=== PATIENT | male | born 1965 | race Caucasian/White ===

== ENCOUNTER 2017-11-12 23:43 | Emergency (ER) | payer BC, SELFPAY ==
[2017-11-12 23:44] VITALS: BP 152/88; PULSE 75; RESP 18; TEMP 36.4; O2SAT 99; BMI 27.7
--- NOTE | 2017-11-13 00:01 | EKG12_ITS ---
Test Reason : CP Blood Pressure : / mmHG Vent. Rate : 069 BPM Atrial Rate : 069 BPM P-R Int : 218 ms QRS Dur : 100 ms QT Int : 404 ms P-R-T Axes : -11 039 039 degrees QTc Int : 432 ms Sinus rhythm with 1st degree A-V block Otherwise normal ECG Confirmed by NETTA NORTON, NELLA ([id number]), film editor supervisor MARIELLE GIPSON ([id number]) on 11/23/2017 6:48:18 PM Referred By: JOJO Confirmed By:NELLA CHADWICK MD
[2017-11-13 00:15] LABS: Absolute Lymphocyte Count 2.89 X10^3/ul (0.83-4.51); Absolute Neutrophil Count 4.1 X10^3/uL (2.0-7.7); Basophil# 0.05 X10^3/uL; Basophil% 0.6 % (0-1); Eosinophil# 0.33 X10^3/uL; Hematocrit 43.1 % (40-54); Hemoglobin 14.9 g/dl (13.0-16.5); Lymphocyte # 2.89 X10^3/ul (4.0); Lymphocyte % 35.1 % (19-41); Mean Corp Hgb Conc 34.6 g/gl (32-36); Mean Corpuscular Hgb 31.3 pg (27.0-32.0); Mean Corpuscular Volume 90.5 fL (80-94); Mean Platelet Vol. 10.5 fl (6.2-12.0); Monocyte# 0.84 X10^3/uL; Monocyte% 10.2 % (0-10); Neutrophil % 49.9 % (47-70); Platelet Count 127 K/mm3 (150-450); RBC Distribution Width CV 12.9 % (11.6-14.6); RBC Distribution Width SD 42.4 fl (35.1-43.9); Red Blood Count 4.76 M/mm3 (4.6-6.2); White Blood Count 8.2 K/mm3 (4.4-11.0)
[2017-11-13] MEDS: Aspirin 81 MG TAB.CHEW 324 MG PO (00:22)
--- NOTE | 2017-11-13 00:25 | RAD_ITS ---
STUDY: X-RAY CHEST REASON FOR EXAM: Male, 52 years old. Chest pain TECHNIQUE: 2 views COMPARISON: None. FINDINGS: The lungs are clear and expanded. There is no demonstrated pleural abnormality. Normal size heart. Normal mediastinum and luis carlos. Normal visualized pulmonary arteries. Normal visualized aortic arch and descending thoracic aorta. Normal visualized thoracic spine. Normal visualized ribs, clavicles, and shoulders. There is no demonstrated abnormality of the visualized soft tissue structures of the upper abdomen. RAD/Chest PA and Lateral IMPRESSION: Normal x-ray examination of the chest. No acute findings in the lungs Electronically Signed: Juan Manuel Wong, at 1:10 EDT Tel , Service support ,
[2017-11-13 00:26] LABS: D-Dimer Quantitative (DVT/PE) 0.42 FEU/ug/m (0.27-0.49); POSITIVE COUNT NO; POSITIVE DIFFERENTIAL NO; POSITIVE MORPHOLOGY NO
[2017-11-13 00:28] LABS: Anion Gap 8 (5-15); BUN 15 mg/dL (7-18); BUN/Creat Ratio 13.9 RATIO (10-20); Calcium,Total 8.1 mg/dL (8.5-10.1); Chloride 97 mmol/L (98-107); Creatinine, Serum 1.08 mg/dL (0.70-1.30); EST Glomerular Filtration Rate 77 mL/min (>60); Est Glom Filt Rate - Afr Amer 93 mL/min (>60); Estimated Creatinine Clearance 99.35 ml/min; Glucose 106 mg/dL (74-106); Potassium 3.8 mmol/L (3.5-5.1); Sodium Level 130 mmol/L (136-145)
[2017-11-13 00:54] VITALS: BP 135/81; PULSE 66; RESP 13; O2SAT 94
[2017-11-13 01:17] VITALS: BP 133/84; PULSE 67; RESP 12; O2SAT 96
--- NOTE | 2017-11-13 02:10 | EKG12_ITS ---
Test Reason : REPEAT Blood Pressure : / mmHG Vent. Rate : 064 BPM Atrial Rate : 064 BPM P-R Int : 252 ms QRS Dur : 100 ms QT Int : 418 ms P-R-T Axes : 029 -02 036 degrees QTc Int : 431 ms Sinus rhythm with 1st degree A-V block Otherwise normal ECG Confirmed by NETTA NORTON, NELLA ([id number]), scientific publications editor MARIELLE GIPSON ([id number]) on 11/23/2017 6:48:35 PM Referred By: JOJO Confirmed By:NELLA CHADWICK MD
[2017-11-13 02:48] VITALS: BP 127/83; PULSE 64; RESP 14; O2SAT 98
--- NOTE | 2017-11-13 03:18 | ED.DCSUM_ITS ---
- ER Visit Summary Date of Service: 11/13/17 Chief Complaint: [] Chest pain History of Present Illness: The patient is a 52 M [] complaining of chest pain in a circular bandlike distribution all the way around the front and the back starting midsternally. Patient reports similar history of symptoms with bad acid reflux. Reports taking his acid reflux medication half an hour after the onset of symptoms without relief. He reports a history of a negative stress test 8 years ago. Denies radiation into the neck jaw or arm. Denies diaphoresis. Denies shortness of breath. Denies pleuritic chest pain. Denies PE risk factors. Reports alcohol and tobacco use. Past medical history of hypertension, hypercholesteremia, anxiety, restless leg syndrome. Physical Examination: [] Afebrile, vital signs stable. 52-year-old male no acute distress. Cardiovascular exam is regular rate and rhythm. Lungs are clear to auscultation. Abdomen is soft and nontender. No lower extremity edema. Test Results: [] Chest x-ray 2 views negative. EKG #1 normal sinus rhythm, rate of 69 with first-degree heart block. No ischemic changes or ectopy. Repeat EKG 3 hours later: Normal sinus rhythm rate of 64 first-degree heart block again no ischemic changes or ectopy. Labs: CBC, BMP within normal limits. Troponin #1 negative. Troponin #2 negative. Emergency Department Course and Treatment: [] JESSICA risk score 0 out of 7. Patient underwent a delta troponin evaluation. This ultimately returned negative. Patient did receive a GI cocktail upon arrival with aspirin. Patient reported improvement of symptoms. He was observed for over 3 hours. He represents clinically low risk for serious cardiac event and will be discharged with instructions to follow-up with an outpatient stress test. His was at the bedside during his entire evaluation. They voiced understanding of discharge instructions and the need for close follow-up. Treatment Plan: [] Follow-up with PCP for outpatient treatment and evaluation. Disposition: [] Discharge, stable. Impression: [] Chest pain This note was generated with [employer] dictation software. It may contain incorrect words, spelling, and punctuation that were not noted in review of the chart prior to signing ED Disposition - Plan for ED Patient: Chief Complaint: Chest Pain Referrals: Vanesa Calderon MD [Primary Care Provider] -
--- NOTE | 2017-11-13 03:18 | ED.DEP ---
ED Disposition - Plan for ED Patient: Disposition: Home or Assisted Living Chief Complaint: Chest Pain Instructions: ED Chest Pain Atypical Unkn Cause Referrals: Vanesa Calderon MD [Primary Care Provider] -
[2017-11-13 03:27] VITALS: BP 131/90; PULSE 53; RESP 18; O2SAT 98
== END 2017-11-13 03:28 | disposition home or self-care (01) ==
PROVIDERS: Emergency Provider Emergency Medicine; Family Provider Internal Medicine; PCP Internal Medicine
DX: R07.9 Chest pain, unspecified (principal); K21.9 Gastro-esophageal reflux disease without esophagitis; I10 Essential (primary) hypertension; E78.00 Pure hypercholesterolemia, unspecified; F41.9 Anxiety disorder, unspecified; G25.81 Restless legs syndrome; Z72.0 Tobacco use; Z79.899 Other long term (current) drug therapy
CPT/HCPCS: 71046; 80048; 84484; 85025; 85379; 93005; 99284; A4216

== ENCOUNTER 2019-11-22 13:05 | Emergency (ER) | payer BC, SELFPAY ==
[2019-11-22 13:06] VITALS: BP 121/79; PULSE 79; RESP 16; TEMP 36.4; O2SAT 96; BMI 27.3
--- NOTE | 2019-11-22 14:36 | ED.DCSUM_ITS ---
- ER Visit Summary Date of Service: 11/22/19 Chief Complaint: Left index finger laceration History of Present Illness: The patient is a 54 M has medical history of hypertension restless leg syndrome and high cholesterol. Was using a razor blade 1 to 2 hours ago and actually lacerated the distal dorsal end of his left index finger. On the ulnar side. Says his last tetanus shot is more than 10 years old. He denies any other injuries. Said he can get the bleeding stopped. Physical Examination: Well-appearing middle-aged male no acute distress vital signs stable afebrile. HEENT exam unremarkable. Lungs are clear. Heart regular rhythm no murmur. Moving all 4 extremities neurovascular intact. Left hand long finger there is a flap laceration on the distal and along the nail of the left index finger on the dorsal side. It is bleeding. There is no pulsatile bleeding. It is dark venous blood. He has full flexion and full extension left index finger distal cap refill and touch sensation. No bony deformity. When I evaluated the wound is not deep but will need some type of repair to stop the bleeding. There is no signs of infection or foreign body. Test Results: None Emergency Department Course and Treatment: Patient wash his hand off thoroughly. I applied Dermabond to the wound because he preferred not being stitch. Then Steri-Strips and is holding nicely and the bleeding is well controlled. Nurse is going to apply tube gauze dressing. Patient knows to remove this in 5 to 7 days. Treatment Plan: Keep dressing dry and clean. Return if bleeding persist. Ice and elevate. Remove dressing in 5 to 7 days. Disposition: Discharge Impression: Left index finger laceration of 2 centimeters with ER repair with Dermabond This note was generated with [employer] dictation software. It may contain incorrect words, spelling, and punctuation that were not noted in review of the chart prior to signing ED Disposition - Plan for ED Patient: [facility] [Primary Care Provider] -
--- NOTE | 2019-11-22 14:38 | ED.DEP ---
ED Disposition - Plan for ED Patient: Disposition: Home or Assisted Living Instructions: ED Laceration Ext Skin Glue Referrals: [facility] [Primary Care Provider] - As Needed Additional Instructions: Keep dressing dry and clean. Keep wound covered for the next 5 to 7 days. Elevate to decrease bleeding. Tylenol for pain. Your tetanus should have been updated today will be good for 10 years. Remove the dressing in 5 to 7 days. If rebleeds apply Band-Aid. Watch for any signs of infection such as redness, fever, streaks, pus or swelling.
[2019-11-22] MEDS: Diphth,Pertuss(Acell),Tet Vac 0.5 ML Vial IM (14:49)
== END 2019-11-22 14:57 | disposition home or self-care (01) ==
PROVIDERS: Emergency Provider Emergency Medicine
DX: S61.211A Laceration without foreign body of left index finger without damage to nail, initial encounter (principal); Z23 Encounter for immunization; W45.8XXA Other foreign body or object entering through skin, initial encounter; Y93.9 Activity, unspecified; Y92.9 Unspecified place or not applicable; Y99.9 Unspecified external cause status; I10 Essential (primary) hypertension; E78.00 Pure hypercholesterolemia, unspecified; G25.81 Restless legs syndrome; Z79.899 Other long term (current) drug therapy
CPT/HCPCS: 12001; 90471; 90715; 99283